=== PATIENT | male | born 1955 | race Caucasian/White ===

== ENCOUNTER 2019-07-18 21:15 | Emergency (ER) | payer MEDICARE, OTHER ==
--- NOTE | 2019-07-18 22:37 | ER Document Report ---
ED Medical Screen (RME) - General Chief Complaint: Dizziness Stated Complaint: NAUSEA/VOMITING/DIZZY Time Seen by Provider: 07/18/19 22:16 Primary Care Provider: MORTEZA RIAN [Primary Care Provider] - Follow up as needed TRAVEL OUTSIDE OF THE [place] IN LAST 30 DAYS: No - HPI Notes: 07/18/19 22:28 Mr. Lopez is a 64-year-old male with past medical history of tobacco abuse who comes in today with chief complaint sinus symptoms for the past 1 to 2 days. He developed vertigo/dizziness that began rather suddently at 830pm tonight. He states that the symptoms today became became progressively worse with additional frontal headache, nausea, vomiting, right lower quadrant abdominal pain, and generalized weakness. He states that he is normally able to ambulate without concern, but has been unable to do so due to his symptoms. Of note patient has had several days worth of congestion, headache, and sinus pressure, and was prescribed amoxicillin on 07/14 for sinus infection. Currently he denies any fevers, chest pain, or shortness of breath. Charge nurse/Dr. Lua notified. Pt to go to room #[address] I have treated and performed a rapid initial assessment of this patient. A comprehensive ED assessment and evaluation of the patient, analysis of test results and completion of medical decision making process will be conducted by additional ED providers. PHYSICAL EXAMINATION: GENERAL: Well-appearing, well-nourished and in no acute distress. A&Ox4. Answers questions appropriately. Head: Atraumatic Eyes: No raccoon eyes, PERRLA, EOMI bilaterally. + horizontal nystagmus to left gaze Neuro: NIH 0 (score of 1 with ataxic gait, no individual limb ataxia currently), GCS 15, cranial nerves grossly intact. - Related Data Allergies/Adverse Reactions: No Known Allergies Allergy (Unverified 07/18/19 22:17) Past Medical History - Social History Chew tobacco use (# tins/day): No Frequency of alcohol use: None Drug Abuse: None Physical Exam - Vital signs Vitals: Temp Pulse Resp BP Pulse Ox 97.7 F 66 20 124/71 96 07/18/19 21:28 07/18/19 21:28 07/18/19 21:28 07/18/19 21:28 07/18/19 21:28 Course - Vital Signs Vital signs: Temp Pulse Resp BP Pulse Ox 97.7 F 66 20 124/71 96 07/18/19 21:28 07/18/19 21:28 07/18/19 21:28 07/18/19 21:28 07/18/19 21:28 Doctor's Discharge - Discharge Referrals: LOCALMD,NO [Primary Care Provider] - Follow up as needed
--- NOTE | 2019-07-18 23:07 | RADIOLOGY REPORT (SQ) ---
EXAM DESCRIPTION: [facility]: CT HEAD WITHOUT IV CONTRAST CLINICAL HISTORY: 64 years Male; dizziness, stroke alert; TECHNIQUE: Noncontrast CT head. All CT scans at this facility use dose modulation, iterative reconstruction, and/or weight based dosing when appropriate to reduce radiation dose to as low as reasonably achievable. COMPARISON: None. FINDINGS: Gibbs matter, white matter, ventricles, and cisterns are within normal limits. No acute hemorrhage or mass effect. Visualized portions of paranasal sinuses and mastoids are clear. Visualized portions of the calvarium are within normal limits. IMPRESSION: 1. No acute intracranial findings.
--- NOTE | 2019-07-18 23:13 | RADIOLOGY REPORT (SQ) ---
EXAM DESCRIPTION: XR CHEST 1 VIEW COMPLETED DATE/TME: 07/18/2019 22:26 CLINICAL HISTORY: 64 years, Male, dizziness COMPARISON: None. NUMBER OF VIEWS: Single TECHNIQUE: LIMITATIONS: None. FINDINGS: Cardiomediastinal silhouette is top normal. Mild LVH configuration. Mild interstitial prominence, presumed chronic. No consolidation effusion or pneumothorax. Mild laxity in the shoulders IMPRESSION: Active intrathoracic disease. copyright 2010 [employer]- All Rights Reserved
[2019-07-18] MEDS ORDERED: NORMAL SALINE 1000 ML 1,000 ML IV ONE (23:14)
--- NOTE | 2019-07-18 23:14 | ER Document Report ---
ED Dizziness/Weakness - General Chief Complaint: Dizziness Stated Complaint: NAUSEA/VOMITING/DIZZY Time Seen by Provider: 07/18/19 22:16 Primary Care Provider: MORTEZA RAIN [NO LOCAL MD] - Follow up as needed Mode of Arrival: Ambulatory Information source: Patient Notes: 64-year-old man presents with a two-week history of dizziness, nausea and imbalance. He was being treated for vertigo apparently given a course of Zithromax followed by treatment with amoxicillin. He is presently not taking any other medications. 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 He went home and developed nausea and vomiting episodes with continued imbalance. His convinced him to come to the emergency department for further evaluation and treatment. TRAVEL OUTSIDE OF THE [place] IN LAST 30 DAYS: No - Related Data Allergies/Adverse Reactions: No Known Allergies Allergy (Unverified 07/18/19 22:17) Past Medical History - Social History Smoking Status: Current Every Day Smoker Chew tobacco use (# tins/day): No Frequency of alcohol use: None Drug Abuse: None Family History: Reviewed & Not Pertinent Patient has suicidal ideation: No Patient has homicidal ideation: No Review of Systems - Review of Systems Notes: Constitutional: Negative for fever. HENT: + Ear fullness Eyes: Negative for visual changes. Cardiovascular: Negative for chest pain. Respiratory: Negative for shortness of breath. Gastrointestinal: Negative for abdominal pain, vomiting or diarrhea. Genitourinary: Negative for dysuria. Musculoskeletal: Negative for back pain. Skin: Negative for rash. Neurological: + Imbalance and dizziness, negative for headaches, weakness or numbness. 10 point ROS negative except as marked above and in HPI. Physical Exam - Vital signs Vitals: Temp Pulse Resp BP Pulse Ox 97.7 F 66 20 124/71 96 07/18/19 21:28 07/18/19 21:28 07/18/19 21:28 07/18/19 21:28 07/18/19 21:28 - Notes Notes: PHYSICAL EXAMINATION: Physical Exam: General: Well-nourished well-developed in no acute distress HEENT: NC/AT, pupils equal round and reactive to light, bilateral tympanic membranes with air-fluid levels, dullness of the TM, MM moist,nares clear, oropharynx clear, airway patent, + lateral nystagmus Neck: supple, no adenopathy, no masses. Good range of motion Lungs: clear, no wheezing, no rales no rhonchi CVS: Regular rate and rhythm no murmur gallop or rub Abdomen: Soft, active, nontender, no masses, no hepatosplenomegaly Ext: No edema, clubbing or cyanosis. Neuro: Alert and responsive, moving all 4 extremities on command, cranial nerves intact, no focal findings Skin: Intact no open lesions, no rash PSYCH: Normal mood, normal affect. Course - Re-evaluation Re-evalutation: 07/19/19 01:10 Patient was evaluated in front end triage, CT of the head, laboratory data and chest x-ray are nondiagnostic.. He was given IV fluids, Decadron 10 mg IV and Zofran with a oral dose of meclizine. The patient states that he is feeling much better his symptoms have resolved. He will be discharged home with meclizine and prednisone. I have asked him to continue the amoxicillin that was prescribed by his primary care doctor. - Vital Signs Vital signs: Temp Pulse Resp BP Pulse Ox 97.7 F 70 12 115/74 93 07/18/19 21:28 07/18/19 22:22 07/19/19 01:01 07/19/19 01:01 07/19/19 01:01 - Laboratory Result Diagrams: 07/18/19 23:00 07/18/19 23:00 Laboratory results interpreted by me: 07/18/19 07/18/19 07/18/19 22:59 23:00 23:00 WBC 16.5 H Lymph % (Auto) 9.4 L Absolute Neuts (auto) 14.1 H Seg Neutrophils % 85.6 H Glucose 130 H POC Glucose 123 H Urine Protein Urine Urobilinogen 07/18/19 23:00 WBC Lymph % (Auto) Absolute Neuts (auto) Seg Neutrophils % Glucose POC Glucose Urine Protein 30 H Urine Urobilinogen 2.0 H 07/19/19 01:18 I have reviewed laboratory data and used this information for the treatment decisions regarding the patient. - Diagnostic Test Radiology reviewed: Image reviewed, Reports reviewed - Chest x-ray: Mild cardiomegaly otherwise normal CT head noncontrast: No acute intracranial pathology noted on CT. Discharge - Discharge Clinical Impression: Labyrinthitis of both ears, Vertigo Acute serous otitis media of both ears Qualifiers: Recurrence: non-recurrent Qualified Code(s): H65.03 - Acute serous otitis media, bilateral Nausea and vomiting Qualifiers: Vomiting type: unspecified Vomiting Intractability: non-intractable Qualified Code(s): R11.2 - Nausea with vomiting, unspecified Condition: Good Disposition: HOME, SELF-CARE Instructions: Antinausea Medication ([facility]), Labyrinthitis ([facility]), Meclizine ([facility]) Additional Instructions: You are diagnosed with labyrinthitis and secondary vertigo, likely related to the fluid behind the eardrums and congestion. Please continue the amoxicillin which was prescribed by your primary care physician. Began meclizine as prescribed, prednisone as prescribed, use Zofran for nausea as prescribed, follow-up with your primary care doctor as needed. If your symptoms worsen or you have other concerns you may return to the emergency department for further treatment. HOME CARE INSTRUCTIONS & INFORMATION: Thank you for choosing us for your medical needs. We hope you're satisfied with the care you received. After you leave, you must properly care for your problem and, at the same time, observe its progress. Any condition can change. Some illnesses can change rapidly over hours or days. If your condition worsens, return to the Emergency Department or see your physician promptly. ABOUT YOUR X-RAYS AND EKG'S: If you had an EKG or X-rays taken, they have been read by the Emergency Physician. The X-rays and EKG's will also be read by a Radiologist or [facility] Biology within 24 hours. If discrepancies are noted, you will be notified by telephone. Please be certain the ED has a correct telephone number & address where you can be reached. Also, realize that some fractures or abnormalities do not show up on initial X-rays. If your symptoms continue, see your physician. ABOUT YOUR LABORATORY TEST: If you had laboratory tests, the results have been reviewed by the Emergency Physician. Some test results (for example cultures) may not be available for several days. You will be contacted if any test result shows you need additional treatment. Please be certain the ED has a correct telephone number and address where you can be reached. ABOUT YOUR MEDICATIONS: You will receive instructions on how to take your medicine on the prescription label you receive. Additional information may be provided by the Pharmacy. If you have questions afterwards, call the ED for clarification or further instructions. Some prescribed medications may cause drowsiness. Do not perform tasks such as driving a car or operating machinery without consulting your Pharmacist. If you feel you need a refill of pain medication, your condition will need re-evaluation. Please do not call for a refill of any medication. ABOUT YOUR SIGNATURE: Signature of this document acknowledges to followin. Understanding that you received emergency treatment and that you may be r eleased before al medical problems are known or treated. Please be certain the ED has a correct phone number & address where you can be reached. 2. Acknowledgement that you will arrange for follow-up care as recommended. 3. Authorization for the Emergency Physician to provide information to your follow-up Physician in order to maximize your care. AT ANY TIME, IF YOUR SYMPTOMS CHANGE SIGNIFICANTLY OR WORSEN OR YOU DEVELOP NEW SYMPTOMS, RETURN TO THE EMERGENCY DEPARTMENT IMMEDIATELY FOR RE-EVALUATION. OUR GOAL IS TO PROVIDE EXCELLENT MEDICAL CARE! WE HOPE THAT WE HAVE MET YOUR EXPECTATIONS DURING YOUR EMERGENCY DEPARTMENT VISIT AND THAT YOU FEEL YOU HAVE RECEIVED EXCELLENT CARE! Prescriptions: Meclizine HCl [Antivert 25 mg Tablet] 25 mg PO TID PRN #30 tablet PRN Reason: Prednisone [Deltasone 20 mg Tablet] 1 tab PO BID 5 Days #10 tablet Ondansetron [Zofran Odt 4 mg Tablet] 1 - 2 tab PO Q4H PRN #15 tab.rapdis PRN Reason: For Nausea/Vomiting Referrals: LOCALMD,NO [NO LOCAL MD] - Follow up as needed
[2019-07-18] MEDS ORDERED: DEXAMETHASONE SOD PHOS INJ 10 MG/1 ML VIAL IV ONE (23:15)
[2019-07-18] MEDS ORDERED: ONDANSETRON HCL INJ/PF 4 MG/2 ML SDV IV ONE (23:15)
[2019-07-18] MEDS ORDERED: MECLIZINE HCL 25 MG TABLET PO ONE (23:16)
[2019-07-18 23:26] LABS: INTERNATIONAL RATION (INR) 1.05; PROTHROMBIN TIME 13.7 SEC (11.4-15.4)
[2019-07-18 23:27] LABS: ABSOLUTE BASOPHILS # (AUTO) 0.1 10^3/uL (0.0-0.2); ABSOLUTE EOSINOPHILS # (AUTO) 0.1 10^3/uL (0.0-0.6); ABSOLUTE MONOCYTES (AUTO) 0.6 10^3/uL (0.1-1.4); LYMPHOCYTES % (AUTO) 9.4 % (13-45); MEAN CORPUSCULAR HGB CONC 33.7 g/dL (32.0-36.0); MEAN CORPUSCULAR VOLUME 94 fl (80-97); TOTAL CELLS COUNTED % (AUTO) 100 %; WHITE BLOOD COUNT 16.5 10^3/uL (4.0-10.5)
[2019-07-18 23:34] LABS: ALBUMIN 4.1 g/dL (3.5-5.0); ALKALINE PHOSPHATASE 80 U/L (38-126); ANION GAP 10 (5-19); ASPARTATE AMINO TRANSFERASE 42 U/L (17-59); BILIRUBIN,DIRECT 0.3 mg/dL (0.0-0.4); BILIRUBIN,TOTAL 0.9 mg/dL (0.2-1.3); BLOOD UREA NITROGEN 18 mg/dL (7-20); CALCIUM 8.9 mg/dL (8.4-10.2); CARBON DIOXIDE 23 mmol/L (22-30); CHLORIDE 107 mmol/L (98-107); GLUCOSE 130 mg/dL (75-110); POTASSIUM 4.3 mmol/L (3.6-5.0); TOTAL PROTEIN 8.1 g/dL (6.3-8.2)
[2019-07-18 23:43] LABS: APPEARANCE,URINE TURBID; BILIRUBIN,URINE NEGATIVE (NEGATIVE); COLOR,URINE YELLOW; GLUCOSE, URINE NEGATIVE (NEGATIVE); KETONES,URINE NEGATIVE (NEGATIVE); PROTEIN,URINE 30 mg/dL (NEGATIVE); URINE SPECIFIC GRAVITY 1.029
[2019-07-18 23:44] LABS: ABSOLUTE LYMPHOCYTES (AUTO) 1.5 10^3/uL (0.5-4.7); ABSOLUTE NEUT (AUTO) 14.1 10^3/uL (1.7-8.2); BASOPHILS % (AUTO) 0.8 % (0-2); EOSINOPHILS % (AUTO) 0.6 % (0-6); HEMOGLOBIN 16.1 g/dL (13.5-17.0); MEAN CORPUSCULAR HEMOGLOBIN 31.7 pg (27.0-33.4); MONOCYTES % (AUTO) 3.6 % (3-13); PLATELET COUNT 167 10^3/uL (150-450); RED BLOOD COUNT 5.09 10^6/uL (4.35-5.55); RED CELL DISTRIBUTION WIDTH 13.7 % (11.5-14.0); SEGMENTED NEUTROPHILS % (AUTO) 85.6 % (42-78)
[2019-07-18 23:51] LABS: AMORPHOUS SEDIMENT,UR 2+; BACTERIA,URINE 2+ /HPF
[2019-07-19 01:18] VITALS: BP 115/74
--- NOTE | 2019-07-19 09:58 | EKG REPORT ---
SEVERITY:- ABNORMAL ECG - SINUS RHYTHM FIRST DEGREE AV BLOCK BORDERLINE T WAVE ABNORMALITIES : Confirmed by: James Cheek 19-Jul-2019 09:58:26
== END 2019-07-19 01:43 | disposition home or self-care (01) ==
LOC: ER 21:15
DX: H83.03 Labyrinthitis, bilateral (principal); R42 Dizziness and giddiness; R11.2 Nausea with vomiting, unspecified; F17.200 Nicotine dependence, unspecified, uncomplicated
CPT/HCPCS: 93005; 99284; 96361; 96374; 96375; 36415; 82962; 83690; 85025; 85610; 80053; 81001; 84484; 71045; 70450; 93010; A9270; J2405; J7030; J1100

== ENCOUNTER 2019-08-03 12:32 | Emergency (ER) | payer MEDICARE, OTHER ==
[2019-08-03] MEDS ORDERED: MECLIZINE HCL 25 MG TABLET PO ONE ×2 (12:48→13:07)
[2019-08-03] MEDS ORDERED: ONDANSETRON HCL INJ/PF 4 MG/2 ML SDV IV ONE (12:48)
--- NOTE | 2019-08-03 12:50 | ER Document Report ---
ED Medical Screen (RME) - General Chief Complaint: Dizziness Stated Complaint: DIZZINESS Time Seen by Provider: 08/03/19 12:41 Information source: Patient Notes: Patient presents complaining of sudden onset of dizziness that he describes as being similar to vertigo that he has had in the past. Patient states he did have some nausea without any emesis. Patient states he has been recently treated for a sinus infection and does complain of pain and fullness in the left ear. I have greeted and performed a rapid initial assessment of this patient. A comprehensive ED assessment and evaluation of the patient, analysis of test results and completion of the medical decision making process will be conducted by additional ED providers. TRAVEL OUTSIDE OF THE [place] IN LAST 30 DAYS: No - Related Data Allergies/Adverse Reactions: No Known Allergies Allergy (Unverified 07/18/19 22:17) Home Medications: Flonase Past Medical History - Social History Frequency of alcohol use: None Drug Abuse: None Physical Exam - Vital signs Vitals: Temp Pulse Resp BP Pulse Ox 98.1 F 60 18 138/77 H 95 08/03/19 12:37 08/03/19 12:37 08/03/19 12:37 08/03/19 12:37 08/03/19 12:37 - General Notes: Left serous effusion - Cardiovascular Rhythm: Regular Heart sounds: S1 appreciated, S2 appreciated Course - Vital Signs Vital signs: Temp Pulse Resp BP Pulse Ox 98.1 F 60 18 138/77 H 95 08/03/19 12:37 08/03/19 12:37 08/03/19 12:37 08/03/19 12:37 08/03/19 12:37
[2019-08-03 13:36] LABS: ABSOLUTE BASOPHILS # (AUTO) 0.1 10^3/uL (0.0-0.2); ABSOLUTE EOSINOPHILS # (AUTO) 0.1 10^3/uL (0.0-0.6); ABSOLUTE LYMPHOCYTES (AUTO) 1.3 10^3/uL (0.5-4.7); ABSOLUTE MONOCYTES (AUTO) 0.5 10^3/uL (0.1-1.4); ABSOLUTE NEUT (AUTO) 8.3 10^3/uL (1.7-8.2); BASOPHILS % (AUTO) 0.7 % (0-2); EOSINOPHILS % (AUTO) 0.5 % (0-6); HEMATOCRIT 47.8 % (37.9-51.0); HEMOGLOBIN 16.4 g/dL (13.5-17.0); MEAN CORPUSCULAR HEMOGLOBIN 31.8 pg (27.0-33.4); MEAN CORPUSCULAR HGB CONC 34.3 g/dL (32.0-36.0); MEAN CORPUSCULAR VOLUME 93 fl (80-97); MONOCYTES % (AUTO) 4.6 % (3-13); PLATELET COUNT 153 10^3/uL (150-450); RED BLOOD COUNT 5.16 10^6/uL (4.35-5.55); RED CELL DISTRIBUTION WIDTH 13.9 % (11.5-14.0); SEGMENTED NEUTROPHILS % (AUTO) 81.2 % (42-78); TOTAL CELLS COUNTED % (AUTO) 100 %; WHITE BLOOD COUNT 10.2 10^3/uL (4.0-10.5)
[2019-08-03 13:50] LABS: ALKALINE PHOSPHATASE 69 U/L (38-126); ANION GAP 8 (5-19); ASPARTATE AMINO TRANSFERASE 42 U/L (17-59); BILIRUBIN,DIRECT 0.1 mg/dL (0.0-0.4); BILIRUBIN,TOTAL 1.1 mg/dL (0.2-1.3); BLOOD UREA NITROGEN 17 mg/dL (7-20); CALCIUM 8.9 mg/dL (8.4-10.2); CARBON DIOXIDE 23 mmol/L (22-30); CHLORIDE 107 mmol/L (98-107); GLUCOSE 118 mg/dL (75-110); POTASSIUM 4.3 mmol/L (3.6-5.0); TOTAL PROTEIN 7.5 g/dL (6.3-8.2)
--- NOTE | 2019-08-03 14:37 | ER Document Report ---
Entered by PORSHA ARIAS SCRIBE 08/03/19 0515 Acting as scribe for:MI DIOP MD ED General - General Chief Complaint: Dizziness Stated Complaint: DIZZINESS Time Seen by Provider: 08/03/19 12:41 Primary Care Provider: [facility] [Provider Group] - Follow up in 3-5 days Information source: Patient Notes: This 64 year old male patient presents to the emergency department today with complaints of dizziness since 10 am this morning. Patient states he felt "off c enter" this morning at work and decided to come to the hospital. Patient states he visited the emergency department x2 weeks ago for dizziness and nausea. Patient states he visited urgent care x4 days after his last visit to the ED, and was told there was fluid in his ears. Patient states he feels like there is still fluid in his left ear. TRAVEL OUTSIDE OF THE [place] IN LAST 30 DAYS: No - Related Data Allergies/Adverse Reactions: No Known Allergies Allergy (Unverified 07/18/19 22:17) Home Medications: Flonase Past Medical History - General Information source: Patient - Social History Smoking Status: Current Every Day Smoker Cigarette use (# per day): Yes Frequency of alcohol use: None Drug Abuse: None Family History: Reviewed & Not Pertinent Patient has suicidal ideation: No Patient has homicidal ideation: No Review of Systems - Review of Systems Constitutional: No symptoms reported EENT: See HPI, Ear pain Cardiovascular: See HPI, Dizziness Respiratory: No symptoms reported Gastrointestinal: See HPI Genitourinary: No symptoms reported Male Genitourinary: No symptoms reported Musculoskeletal: No symptoms reported Skin: No symptoms reported Hematologic/Lymphatic: No symptoms reported Neurological/Psychological: No symptoms reported Physical Exam - Vital signs Vitals: Temp Pulse Resp BP Pulse Ox 98.1 F 60 18 138/77 H 95 08/03/19 12:37 08/03/19 12:37 08/03/19 12:37 08/03/19 12:37 08/03/19 12:37 - General General appearance: Appears well, Alert - HEENT Head: Normocephalic, Atraumatic Eyes: Other - Lateral gaze nystagmus. Ears: Normal External canal: Normal Tympanic membrane: Injected - Right, Retracted - Right, Serous effusion - Left Neck: Normal - Respiratory Respiratory status: No respiratory distress Chest status: Nontender Breath sounds: Normal Chest palpation: Normal - Cardiovascular Rhythm: Regular Heart sounds: Normal auscultation Murmur: No - Abdominal Inspection: Normal Distension: No distension Bowel sounds: Normal Tenderness: Nontender - Extremities General upper extremity: Normal inspection. No: Edema General lower extremity: Normal inspection. No: Edema - Neurological Neuro grossly intact: Yes Cognition: Normal Orientation: AAOx4 - Psychological Associated symptoms: Normal affect, Normal mood - Skin Skin Temperature: Warm Skin Moisture: Dry Skin Color: Normal Course - Re-evaluation Re-evalutation: 08/03/19 14:58 The patient got up to go to the restroom, when he came back he stated that his dizzy sensation and off-balance feeling is considerably better than it was previously. He will be referred to [facility] for further evaluation of his recurrent vertigo and his chronic left serous otitis media. - Vital Signs Vital signs: Temp Pulse Resp BP Pulse Ox 98.1 F 78 17 132/78 H 98 08/03/19 12:37 08/03/19 13:32 08/03/19 13:32 08/03/19 13:32 08/03/19 13:32 - Laboratory Result Diagrams: 08/03/19 13:09 08/03/19 13:09 Laboratory results interpreted by me: 08/03/19 08/03/19 13:09 13:09 Absolute Neuts (auto) 8.3 H Seg Neutrophils % 81.2 H Glucose 118 H - EKG Interpretation by [facility] EKG shows normal: Sinus rhythm, [place], Intervals, QRS Complexes, ST-T Waves Rate: Normal - 59 Rhythm: NSR Discharge - Discharge Clinical Impression: Vertigo Serous otitis media Qualifiers: Chronicity: unspecified Laterality: left Qualified Code(s): H65.92 - Unspecified nonsuppurative otitis media, left ear Condition: Stable Disposition: HOME, SELF-CARE Additional Instructions: Serous Otitis Media: You have serous otitis -- a vacuum or a fluid build-up in your middle ear cavity. This is caused by blockage of the eustachian tube, which connects the middle ear cavity to the back of the throat. Serous otitis is usually treated with decongestants. Antibiotics are given if there is a question of either early or chronic ear infection. Maneuvers to open the eustachian tube may help. For example, holding your nose then gently "breathing" air up against the closed nostrils may "pop" the eardrums (meaning the eustachian tube has opened). Unfortunately, this condition sometimes takes days or weeks to resolve. In young children, tubes may be required if serous otitis continues despite treatment. A second exam is usually scheduled to see if the problem has improved. If you develop severe ear pain, drainage from the ear, headache, or fever, call the doctor or return for re-examination. Vertigo: You have experienced an episode of vertigo -- a whirling dizziness which may be accompanied by nausea and vomiting or staggering. Vertigo is often caused by an irritation of the inner ear, in which case it is called labyrinthitis. It can also be a symptom of a degenerating inner ear, nerve damage, or brain injury. Your physician has evaluated you to determine whether any further testing is necessary. Vertigo is often treated with dramamine or meclizine. These medications are helpful, but stronger medication may be needed if you are vomiting. Rest in bed. You should not drive or operate machinery until completely better. It may take one to three weeks for recovery. If there are new symptoms, such as decreased hearing or vision, severe headache, weakness or faintness, or confusion, call the physician. Take the medication as prescribed for the dizziness. Do not drive, operate machinery, or climb ladders or any other activity that puts you at risk of injury if the dizziness were to come on suddenly. Call [facility] to schedule an appointment in the next few days for further evaluation of your recurring vertigo and chronic serous otitis media. RETURN TO THE EMERGENCY ROOM IF ANY NEW OR WORSENING SYMPTOMS. Prescriptions: Meclizine HCl [Antivert 25 mg Tablet] 25 mg PO TID PRN #30 tablet PRN Reason: Forms: Return to Work Referrals: [facility] [Provider Group] - Follow up in 3-5 days I personally performed the services described in the documentation, reviewed and edited the documentation which was dictated to the scribe in my presence, and it accurately records my words and actions.
[2019-08-03 15:04] VITALS: BP 128/80
--- NOTE | 2019-08-03 19:21 | EKG REPORT ---
SEVERITY:- NORMAL ECG - SINUS RHYTHM : Confirmed by: Luiz Guerra MD 03-Aug-2019 19:20:09
== END 2019-08-03 15:16 | disposition home or self-care (01) ==
LOC: ER 12:32
DX: R42 Dizziness and giddiness (principal); H65.22 Chronic serous otitis media, left ear; H55.00 Unspecified nystagmus; F17.210 Nicotine dependence, cigarettes, uncomplicated; Z79.899 Other long term (current) drug therapy
CPT/HCPCS: 93005; 99284; 96374; 36415; 85025; 80053; 93010; A9270; J2405

== ENCOUNTER → 2019-09-25 | Outpatient (CLI) | payer MEDICARE, OTHER | LOC: OD 09:15 | PROVIDERS: ATTEND Otolaryngology | DX: J30.9 Allergic rhinitis, unspecified (principal) | CPT/HCPCS: 36415; 82785; 86003 ==

== ENCOUNTER → 2019-09-27 | Outpatient (CLI) | payer MEDICARE, OTHER ==
--- NOTE | 2019-09-27 11:11 | RADIOLOGY REPORT (SQ) ---
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 TECHNIQUE: Multiplanar imaging includes non-contrasted T1, T2, FLAIR, diffusion with ADC map and pos t gadolinium contrast sequences. Additional thin slice images with and without gadolinium contrast a cquired in the posterior fossa. Images stored on PACS. CONTRAST TYPE AND DOSE: 20 mL Dotarem. RENAL FUNCTION: Not indicated. ACR Type II contrast agent associated with few, if any, unconfounded cases of NSF LIMITATIONS: None. FINDINGS: ANATOMY: No anomalies. Normal vascular flow voids. Pituitary fossa normal. CSF SPACES: Normal in size and contour. CEREBRUM: Sulci and gyri normal in size and contour. Normal white matter signal on FLAIR imaging. N o hemorrhage. No edema, masses or mass effect. No enhancing lesions. POSTERIOR FOSSA: No signal alteration. No hemorrhage. No edema, masses or mass effect. Internal fredy tory canals, cerebello-pontine angles, mastoids normal. No enhancing lesions. Detailed imaging of the 5th, 7th, and 8th nerves and [place] within normal limits. DIFFUSION IMAGING: Negative for acute or sub-acute infarction. ORBITS: No masses. Globes normal. PARANASAL SINUSES: No fluid levels. Mucosa normal. OTHER: No other significant finding. IMPRESSION: NORMAL MRI OF THE BRAIN AND POSTERIOR FOSSA WITHOUT AND WITH INTRAVENOUS GADOLINIUM CONT RAST. TECHNICAL DOCUMENTATION: JOB ID: [id number] 2010 [employer]- All Rights Reserved Reading location - IP/workstation name: [email or web address]
== END ==
LOC: RAD 06:49
PROVIDERS: ATTEND Otolaryngology
DX: H90.5 Unspecified sensorineural hearing loss (principal)
CPT/HCPCS: 82565; 70553; A9576

== ENCOUNTER 2020-01-16 06:15 | Emergency (ER) | payer MEDICARE, OTHER ==
[2020-01-16] MEDS ORDERED: NORMAL SALINE 1000 ML 1,000 ML IV ONE (07:55)
[2020-01-16] MEDS ORDERED: KETOROLAC TROMETHAMINE INJ/PF 30 MG/1 ML SDV IV ONE (07:56)
[2020-01-16] MEDS ORDERED: ONDANSETRON HCL INJ/PF 4 MG/2 ML SDV IV ONE ×2 (07:56→11:32)
--- NOTE | 2020-01-16 08:00 | ER Document Report ---
ED General - General Chief Complaint: Abdominal Pain Stated Complaint: LEFT FLANK PAIN Time Seen by Provider: 01/16/20 07:35 Primary Care Provider: HOPE BLACK DO [ASSOCIATE] - Follow up as needed TRAVEL OUTSIDE OF THE [place] IN LAST 30 DAYS: No - HPI Notes: Chief complaint: Left flank pain and left upper quadrant abdominal pain History of present illness: 64-year-old male with positive family history of kidney stones but no personal history of this entity awakened this morning around 4:30 AM with mild left upper quadrant and left flank pain. This was initially intermittent and has now become steady presently reaching an intensity of 8/10. Associated nausea without vomiting. No dysuria, gross hematuria or urinary frequency. No fever or chills. Patient took some Gas-X initially with no relief of his discomfort. - Related Data Allergies/Adverse Reactions: No Known Allergies Allergy (Unverified 07/18/19 22:17) Home Medications: flonase, meclizine-prn Past Medical History - General Information source: Patient, Relative, [facility] - Social History Smoking Status: Current Every Day Smoker Frequency of alcohol use: Occasional Drug Abuse: None Family History: Reviewed & Not Pertinent - Past Medical History Cardiac Medical History: Reports: None Pulmonary Medical History: Reports: None Endocrine Medical History: Denies: Hx Diabetes Mellitus Type 1, Hx Diabetes Jessica litus Type 2 Renal/ Medical History: Reports: None Malignancy Medical History: Reports None GI Medical History: Reports: None Psychiatric Medical History: Reports: None Surgical Hx: Negative Review of Systems - Review of Systems Notes: Constitutional: Negative for fever. HENT: Negative for sore throat. Eyes: Negative for visual changes. Cardiovascular: Negative for chest pain. Respiratory: Negative for shortness of breath. Gastrointestinal: As per HPI. Genitourinary: As per HPI. Musculoskeletal: Negative for back pain. Skin: Negative for rash. Neurological: Negative for headaches, weakness or numbness. 10 point ROS negative except as marked above and in HPI. Physical Exam - Vital signs Vitals: Temp Pulse Resp BP Pulse Ox 98.5 F 62 16 148/101 H 93 01/16/20 06:20 01/16/20 06:20 01/16/20 06:20 01/16/20 06:20 01/16/20 06:20 - Notes Notes: GENERAL: Well-developed well-nourished male approximately stated age appearing in moderate discomfort. SKIN: Good turgor no rashes. HEAD: Normocephalic atraumatic. EYES: PERRLA. EOMI. Conjunctivae and sclerae clear. EARS: CANALS AND TMS CLEAR. NOSE: CLEAR. MOUTH: Moist mucosa. Good dentition. No stridor or edema. No drooling. NECK: Supple. No masses or thyromegaly. No adenopathy. Carotids 2+ without br uits. No JVD. BACK: Symmetrical without tenderness. CHEST: Respirations unlabored. Breath sounds clear and symmetrical. HEART: Regular rhythm. No murmur gallop or rub. ABDOMEN: Soft nontender without masses, organomegaly or rebound. Bowel sounds normally active. No bruits. GENITALIA: Deferred. EXTREMITIES: No edema. No calf tenderness. Cap refill less than 1.5 seconds. Dorsalis pedis and posterior tibial pulses 3+ and symmetrical. NEUROLOGICAL: GCS 15. Alert and oriented x3. Normal gait. Fluent speech. Cranial nerves II through XII intact. Sensorimotor and cerebellar normal. Normal tone. PSYCHIATRIC: Appropriate affect. Course - Re-evaluation Re-evalutation: 01/16/20 12:37 Patient presented with what appeared to be typical renal colic on the left. Urinalysis is unremarkable. Creatinine normal. White count was 12.7 with a normal hemoglobin. Patient received IV fluids and IV Toradol with initial relief of pain. Subsequently had recurrence of pain and required administration of IV Dilaudid. CT urogram suggested high-grade UPJ obstruction left with no clear-cut stone visualized. Per recommendation of radiology went back he has been IV contrast. He appears to have some sort of a high density nodular lesion in the area obstruction. I have requested consultation with Dr. 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 I am awaiting return call. Findings have been discussed with patient at this time. 01/16/20 15:33 Dr. Dela Cruz feels patient is stable for outpatient follow-up in the office. We have given patient the office number and advised him to call tomorrow to arrange an appointment. He will be discharged on Percocet and Zofran. - Vital Signs Vital signs: Temp Pulse Resp BP Pulse Ox 98.2 F 53 L 14 139/86 H 91 L 01/16/20 15:14 01/16/20 15:14 01/16/20 10:27 01/16/20 15:14 01/16/20 15:14 - Laboratory Result Diagrams: 01/16/20 08:00 01/16/20 08:00 Laboratory results interpreted by me: 01/16/20 01/16/20 08:00 08:00 WBC 12.7 H Plt Count 140 L Lymph % (Auto) 6.6 L Absolute Neuts (auto) 11.3 H Seg Neutrophils % 89.3 H Chloride 109 H Carbon Dioxide 21 L Glucose 142 H - Diagnostic Test Radiology reviewed: Reports reviewed Discharge - Discharge Clinical Impression: Ureteropelvic junction (UPJ) obstruction, left Condition: Stable Disposition: HOME, SELF-CARE Additional Instructions: Return here as needed for new or worsening symptoms: Pain that is worsening or unimproved Uncontrolled vomiting High fever or shaking chills Overall worsening Call referral urologist office tomorrow to confirm appointment for 8:30 AM on TuesdayJanuary [address] Demarco Dela Cruz Prescriptions: Oxycodone HCl/Acetaminophen [Percocet 5-325 mg Tablet] 1 - 2 tab PO Q4H PRN #15 tablet PRN Reason: Ondansetron [Zofran Odt 4 mg Tablet] 1 - 2 tab PO Q4H PRN #15 tab.rapdis PRN Reason: For Nausea/Vomiting Referrals: HOPE BLACK DO [ASSOCIATE] - Follow up as needed DEMARCO DELA CRUZ MD [NO LOCAL MD] - Follow up as needed
[2020-01-16 08:18] LABS: ABSOLUTE BASOPHILS # (AUTO) 0.1 10^3/uL (0.0-0.2); ABSOLUTE LYMPHOCYTES (AUTO) 0.8 10^3/uL (0.5-4.7); ABSOLUTE MONOCYTES (AUTO) 0.4 10^3/uL (0.1-1.4); ABSOLUTE NEUT (AUTO) 11.3 10^3/uL (1.7-8.2); BASOPHILS % (AUTO) 0.5 % (0-2); EOSINOPHILS % (AUTO) 0.1 % (0-6); HEMATOCRIT 46.2 % (37.9-51.0); HEMOGLOBIN 16.3 g/dL (13.5-17.0); LYMPHOCYTES % (AUTO) 6.6 % (13-45); MEAN CORPUSCULAR HEMOGLOBIN 32.2 pg (27.0-33.4); MEAN CORPUSCULAR HGB CONC 35.2 g/dL (32.0-36.0); MEAN CORPUSCULAR VOLUME 92 fl (80-97); MONOCYTES % (AUTO) 3.5 % (3-13); PLATELET COUNT 140 10^3/uL (150-450); RED BLOOD COUNT 5.05 10^6/uL (4.35-5.55); RED CELL DISTRIBUTION WIDTH 13.7 % (11.5-14.0); SEGMENTED NEUTROPHILS % (AUTO) 89.3 % (42-78); TOTAL CELLS COUNTED % (AUTO) 100 %; WHITE BLOOD COUNT 12.7 10^3/uL (4.0-10.5)
[2020-01-16 08:26] LABS: APPEARANCE,URINE SLIGHTLY-CLOUDY; BILIRUBIN,URINE NEGATIVE (NEGATIVE); COLOR,URINE YELLOW; GLUCOSE, URINE NEGATIVE (NEGATIVE); KETONES,URINE NEGATIVE (NEGATIVE); LEUKOCYTE ESTERASE,URINE NEGATIVE (NEGATIVE); NITRITE,URINE NEGATIVE (NEGATIVE); PROTEIN,URINE NEGATIVE (NEGATIVE); URINE SPECIFIC GRAVITY 1.027; UROBILINOGEN,URINE NEGATIVE mg/dL (<2.0)
[2020-01-16 08:39] LABS: ALBUMIN 3.8 g/dL (3.5-5.0); ALKALINE PHOSPHATASE 67 U/L (38-126); ANION GAP 8 (5-19); ASPARTATE AMINO TRANSFERASE 37 U/L (17-59); BILIRUBIN,DIRECT 0.3 mg/dL (0.0-0.4); BILIRUBIN,TOTAL 0.9 mg/dL (0.2-1.3); BLOOD UREA NITROGEN 20 mg/dL (7-20); CALCIUM 8.8 mg/dL (8.4-10.2); CARBON DIOXIDE 21 mmol/L (22-30); CHLORIDE 109 mmol/L (98-107); GLUCOSE 142 mg/dL (75-110); POTASSIUM 4.5 mmol/L (3.6-5.0); TOTAL PROTEIN 6.8 g/dL (6.3-8.2)
--- NOTE | 2020-01-16 09:20 | RADIOLOGY REPORT (SQ) ---
EXAM DESCRIPTION: CT ABD/PELVIS NO ORAL OR IV IMAGES COMPLETED DATE/TIME: 01/16/2020 8:51 am REASON FOR STUDY: Left upper quadrant abdominal pain COMPARISON: None. TECHNIQUE: CT scan of the abdomen and pelvis performed without intravenous or oral contrast. Images reviewed with lung, soft tissue, and bone windows. Reconstructed coronal and sagittal MPR images revi ewed. All images stored on PACS. All CT scanners at this facility use dose modulation, iterative reconstruction, and/or weight based d osing when appropriate to reduce radiation dose to as low as reasonably achievable (ALARA). [facility]: Dose Right [facility]: CareDose [facility]: Dose Right [facility]: Teradose 4D [facility]: Smart [id number] RADIATION DOSE: CT Rad equipment meets quality standard of care and radiation dose reduction techniq ues were employed. CTDIvol: 16.6 mGy. DLP: 937 mGy-cm. LIMITATIONS: None. FINDINGS: LOWER CHEST: Atherosclerotic calcification of the aortic valve leaflets. NON-CONTRASTED LIVER, SPLEEN, ADRENALS: Evaluation is limited due to the absence of intravenous contr ast. The morphology of the liver is noncirrhotic. The spleen is borderline enlarged and it measures 13.4 cm in AP diameter. The diffuse nodular enlargement of the left adrenal gland could represent a denomatous hyperplasia. There is no discrete right adrenal nodule. PANCREAS: No acute gross abnormality of the pancreas. GALLBLADDER: No abnormality that is apparent on CT. RIGHT KIDNEY AND URETER: Evaluation is limited due to the absence of intravenous contrast. There is no hydronephrosis, nephrolithiasis, hydroureter or ureterolithiasis. LEFT KIDNEY AND URETER: Evaluation is limited due to the absence of intravenous contrast. There is a symmetric enlargement of the kidney, stranding of the perinephric fat and moderate to severe hydronep hrosis with an abrupt transition in the caliber between the dilated renal pelvis and the nondilated u reter at the ureteropelvic junction (image 48 of series 3). There is no discrete nephrolithiasis or ureterolithiasis. AORTA AND RETROPERITONEUM: Variant duplication of the IVC. The abdominal aorta is normal in caliber. There is no retroperitoneal adenopathy, hemorrhage or mass. BOWEL AND PERITONEAL CAVITY: Colonic diverticulosis without diverticulitis. There is no bowel obstru ction, bowel wall thickening or pericolonic/ perienteric inflammation. There is no mesenteric adenop athy, free intraperitoneal fluid or mesenteric/ omental inflammation. APPENDIX: Normal. PELVIS, BLADDER, AND ABDOMINAL WALL:The urinary bladder is contracted. There is no sizable abdominal wall mass or hernia. BONES: Degenerative spondylosis and facet arthropathy of the lumbar spine. OTHER: No other significant finding. IMPRESSION: 1. There is asymmetric enlargement of the left kidney, stranding of the left perinephric fat and moderate to severe left-sided hydronephrosis with an abrupt transition in the caliber betwee n the dilated renal pelvis and the nondilated ureter at the ureteropelvic junction (image 48 of serie s 3). There is no discrete nephrolithiasis or ureterolithiasis. The aforementioned findings could r epresent a stricture at the ureterovesicular junction or an obstructive calculus that is imperceptibl e on CT. 2. Varying duplication of the IVC. 3. Colonic diverticulosis without diverticulitis. COMMENT: Quality ID # 436: Final reports with documentation of one or more dose reduction techniques (e.g., Automated exposure control, adjustment of the mA and/or kV according to patient size, use of iterative reconstruction technique) TECHNICAL DOCUMENTATION: JOB ID: [id number] 2010 [employer]- All Rights Reserved Reading location - IP/workstation name: [email or web address]
[2020-01-16] MEDS ORDERED: MORPHINE SULFATE 10 MG/ML INJ IV PRN (11:30)
[2020-01-16] MEDS ORDERED: MORPHINE SULFATE 10 MG/ML INJ IV ONE (11:32)
--- NOTE | 2020-01-16 11:43 | RADIOLOGY REPORT (SQ) ---
EXAM DESCRIPTION: CT ABD/PELVIS WITH IV ONLY IMAGES COMPLETED DATE/TIME: 01/16/2020 11:12 am REASON FOR STUDY: abn non-contrast CT abd/pelvis COMPARISON: CT of the abdomen pelvis without contrast from 01/16/2020. TECHNIQUE: CT scan of the abdomen and pelvis performed using helical scanning technique with dynamic intravenous contrast injection. No oral contrast. Images reviewed with lung, soft tissue, and bone windows. Reconstructed coronal and sagittal MPR images reviewed. Delayed images for evaluation of the urinary system also acquired. All images stored on PACS. All CT scanners at this facility use dose modulation, iterative reconstruction, and/or weight based d osing when appropriate to reduce radiation dose to as low as reasonably achievable (ALARA). [facility]: Dose Right [facility]: CareDose [facility]: Dose Right [facility]: Teradose 4D [facility]: [employer] CONTRAST TYPE AND DOSE: Contrast/concentration: Isovue 350.00 mmol/ml; Total Contrast Delivered: 100 .0 ml; Total Saline Delivered: 69.9 ml RENAL FUNCTION: Creatinine 1.18 milligrams/deciliter. RADIATION DOSE: CT Rad equipment meets quality standard of care and radiation dose reduction techniq ues were employed. CTDIvol: 15.2 - 19.3 mGy. DLP: 1894 mGy-cm. LIMITATIONS: None. FINDINGS: LOWER CHEST: No acute findings. LIVER: The morphology of the liver is noncirrhotic. The portal veins are patent. There is no hepati c mass. SPLEEN: No the spleen is borderline enlarged. There is no splenic mass. PANCREAS: No acute gross abnormality of the pancreas. GALLBLADDER: No abnormality that is apparent on CT. ADRENAL GLANDS: Unchanged diffuse nodular enlargement of the left adrenal gland. RIGHT KIDNEY AND URETER: Simple cyst in the anterior cortex of the lower pole of the kidney that rtey sures 2.1 x 1.4 cm. There is no solid mass, hydronephrosis, nephrolithiasis, hydroureter or ureterol ithiasis. LEFT KIDNEY AND URETER: There is re- demonstration of asymmetric enlargement of the kidney, moderate to severe hydronephrosis, delayed excretion of the intravenous contrast and stranding of the perineph pat fat ; these findings are secondary to a hyperdensity of the ureter say color junction (image 40 o f series 601) that has an attenuation of 54 Hounsfield units (26 Hounsfield units on the correlative noncontrast CT). There is no definite nephrolithiasis or ureterolithiasis. AORTA AND VESSELS: Variant duplication of the IVC. The abdominal aorta is nonaneurysmal. RETROPERITONEUM: No retroperitoneal adenopathy, hemorrhage or mass. BOWEL AND PERITONEAL CAVITY: No bowel obstruction, bowel wall thickening or pericolonic/ perienteric inflammation. No mesenteric adenopathy, free intraperitoneal fluid or mesenteric/omental inflammatio n. APPENDIX: Normal. PELVIS: No abnormality. ABDOMINAL WALL: No mass or hernia. BONES: No acute findings. OTHER: No other finding. IMPRESSION: Nodular hyperdense lesion in the left ureterovesicular junction that on correlation with the recent noncontrast CT demonstrates mild enhancement and results in moderate to severe ipsilatera l hydronephrosis, enlargement of the kidney, delayed excretion of the intravenous contrast and strand ing of the perinephric fat. Differential considerations include urothelial carcinoma, sloughed papil la and an ureteral papilloma. TECHNICAL DOCUMENTATION: JOB ID: [id number] Quality ID # [id number]: Final reports with documentation of one or more dose reduction techniques (e.g., Au tomated exposure control, adjustment of the mA and/or kV according to patient size, use of iterative reconstruction technique) 2010 [employer]- All Rights Reserved Reading location - IP/workstation name: [email or web address]
[2020-01-16] MEDS ORDERED: HYDROMORPHONE HCL INJ/PF 2 MG/ML AMPULE IV ONE ×2 (12:21→14:29)
[2020-01-16 16:05] VITALS: BP 170/80
== END 2020-01-16 16:05 | disposition home or self-care (01) ==
LOC: ER 06:15
DX: N13.5 Crossing vessel and stricture of ureter without hydronephrosis (principal); R10.9 Unspecified abdominal pain; R10.12 Left upper quadrant pain; R11.0 Nausea; Z79.899 Other long term (current) drug therapy; F17.200 Nicotine dependence, unspecified, uncomplicated
CPT/HCPCS: 96376; 99285; 96361; 96374; 96375; 36415; 83690; 85025; 80053; 81001; 74176; 74177; J1885; J2270; J1170; J2405; J7030

== ENCOUNTER 2020-01-19 06:01 | Emergency (ER) | payer MEDICARE, OTHER ==
[2020-01-19] MEDS ORDERED: HYDROMORPHONE HCL INJ/PF 2 MG/ML AMPULE IV ONE (06:38)
[2020-01-19] MEDS ORDERED: ONDANSETRON HCL INJ/PF 4 MG/2 ML SDV IV ONE (06:39)
[2020-01-19] MEDS ORDERED: NORMAL SALINE 500 ML IV ONE (06:40)
[2020-01-19 07:01] LABS: ABSOLUTE BASOPHILS # (AUTO) 0.1 10^3/uL (0.0-0.2); ABSOLUTE EOSINOPHILS # (AUTO) 0.2 10^3/uL (0.0-0.6); ABSOLUTE LYMPHOCYTES (AUTO) 1.3 10^3/uL (0.5-4.7); ABSOLUTE MONOCYTES (AUTO) 0.9 10^3/uL (0.1-1.4); ABSOLUTE NEUT (AUTO) 9.7 10^3/uL (1.7-8.2); BASOPHILS % (AUTO) 0.5 % (0-2); EOSINOPHILS % (AUTO) 1.3 % (0-6); HEMATOCRIT 46.2 % (37.9-51.0); HEMOGLOBIN 15.9 g/dL (13.5-17.0); LYMPHOCYTES % (AUTO) 10.6 % (13-45); MEAN CORPUSCULAR HEMOGLOBIN 31.7 pg (27.0-33.4); MEAN CORPUSCULAR HGB CONC 34.4 g/dL (32.0-36.0); MEAN CORPUSCULAR VOLUME 92 fl (80-97); MONOCYTES % (AUTO) 7.3 % (3-13); PLATELET COUNT 141 10^3/uL (150-450); RED BLOOD COUNT 5.01 10^6/uL (4.35-5.55); RED CELL DISTRIBUTION WIDTH 13.8 % (11.5-14.0); SEGMENTED NEUTROPHILS % (AUTO) 80.3 % (42-78); TOTAL CELLS COUNTED % (AUTO) 100 %; WHITE BLOOD COUNT 12.1 10^3/uL (4.0-10.5)
[2020-01-19 07:07] LABS: ALBUMIN 3.6 g/dL (3.5-5.0); ALKALINE PHOSPHATASE 65 U/L (38-126); ANION GAP 7 (5-19); ASPARTATE AMINO TRANSFERASE 35 U/L (17-59); BILIRUBIN,DIRECT 0.3 mg/dL (0.0-0.4); BILIRUBIN,TOTAL 1.4 mg/dL (0.2-1.3); BLOOD UREA NITROGEN 17 mg/dL (7-20); CALCIUM 8.5 mg/dL (8.4-10.2); CARBON DIOXIDE 23 mmol/L (22-30); CHLORIDE 106 mmol/L (98-107); GLUCOSE 131 mg/dL (75-110); POTASSIUM 4.3 mmol/L (3.6-5.0); TOTAL PROTEIN 6.6 g/dL (6.3-8.2)
--- NOTE | 2020-01-19 08:10 | RADIOLOGY REPORT (SQ) ---
Abdomen x-ray single view on 01/19/2020 at 7:19 AM CLINICAL INDICATION: Left-sided back pain COMPARISON: CT from 01/16/2020 FINDINGS: Calcification in the pelvis is consistent with a phlebolith. Bowel gas pattern is unremarkable. No increased stool to suggest constipation is noted. No other abnormal calcification or mass effect is noted. No bony normality is noted. IMPRESSION: Nonspecific abdomen.
[2020-01-19 09:18] LABS: AMORPHOUS SEDIMENT,URINE 1+ /HPF; APPEARANCE,URINE TURBID; BILIRUBIN,URINE NEGATIVE (NEGATIVE); COLOR,URINE YELLOW; GLUCOSE, URINE NEGATIVE (NEGATIVE); KETONES,URINE NEGATIVE (NEGATIVE); LEUKOCYTE ESTERASE,URINE NEGATIVE (NEGATIVE); NITRITE,URINE NEGATIVE (NEGATIVE); PROTEIN,URINE NEGATIVE (NEGATIVE); URINE SPECIFIC GRAVITY 1.023; UROBILINOGEN,URINE NEGATIVE mg/dL (<2.0)
--- NOTE | 2020-01-19 10:15 | ER Document Report ---
Entered by RUTHIE FERNANDEZ SCRIBE 01/19/20 0624 Acting as scribe for:PAULA KAMARA MD ED GI/ - General Chief Complaint: Flank Pain Stated Complaint: FLANK PAIN Primary Care Provider: PETE CRUZ PA-C [Primary Care Provider] - Follow up as needed Information source: Patient Notes: This 64-year-old male patient presents to the emergency department today with complaints of continued left-sided flank pain. Patient was seen here on January 16 2020 for left flank pain and he had an abd/pelvis CT as well as an abd/pelvis CT with IV contrast and the impression is as below: "Nodular hyperdense lesion in the left ureterovesicular junction on correlation with recent noncontrast CT demonstrates mild enhancement and results in moderate to severe ipsilateral hydronephrosis, enlargement of kidney, delayed excretion of intravenous contrast and stranding of the perinephric fat. Differential considerations include urothelial carcinoma, sloughed papula and a ureteral papilloma." He reports that he was told to follow-up with urology at [facility], Dr. Acosta. He saw him yesterday and was told that "he could not determine exactly what it was either". They told him that they were going to do an exploratory laparotomy to try and figure out what this obstruction was but they have not yet scheduled it. Patient reports that he took 1 hydrocodone at 10 PM last night and took another one at around midnight last night and was able to get to sleep. He reports that he woke up shortly before arrival today and he was attempting to drive to [place] but "the pain was too severe". He has not taken his pain medication in now nearly 7 hours. He reports that he "feels dehydrated and has had only small amounts of urine come out". TRAVEL OUTSIDE OF THE [place] IN LAST 30 DAYS: No - Related Data Allergies/Adverse Reactions: No Known Allergies Allergy (Unverified 07/18/19 22:17) Home Medications: meclizine. flonase. percocet Past Medical History - General Information source: Patient - Social History Smoking Status: Current Every Day Smoker Cigarette use (# per day): Yes Chew tobacco use (# tins/day): No Frequency of alcohol use: None Drug Abuse: None Occupation: retired Lives with: Family Family History: Reviewed & Not Pertinent Renal/ Medical History: Reports: Other - Hx left-sided hydronephrosis, causenot determined yet Surgical Hx: Negative Review of Systems - Review of Systems Constitutional: No symptoms reported EENT: No symptoms reported Cardiovascular: No symptoms reported Respiratory: No symptoms reported Gastrointestinal: See HPI, Abdominal pain. denies: Nausea, Vomiting Genitourinary: See HPI, Flank pain - left, Retention Male Genitourinary: No symptoms reported Musculoskeletal: No symptoms reported Skin: No symptoms reported Hematologic/Lymphatic: No symptoms reported Neurological/Psychological: No symptoms reported -: Yes All other systems reviewed and negative Physical Exam - Vital signs Vitals: Temp Pulse Resp BP Pulse Ox 98.7 F 63 16 155/84 H 97 01/19/20 06:05 01/19/20 06:05 01/19/20 06:05 01/19/20 06:05 01/19/20 06:05 - Notes Notes: Physical Exam: General: Alert, appears uncomfortable. HEENT: Normocephalic. Atraumatic. PERRL. Extraocular movements intact. Oropharynx clear. Neck: Supple. Non-tender. Respiratory: No respiratory distress. Clear and equal breath sounds bilaterally. Cardiovascular: Regular rate and rhythm. Abdominal: Obese. LUQ tenderness to palpation, positive guarding without rebound. No distension. Normal Bowel Sounds. Back: Left flank tenderness to percussion. Extremities: Moves all four extremities. Upper extremities: Normal inspection. Normal ROM. Lower extremities: Normal inspection. No edema. Normal ROM. Neurological: Normal cognition. AAOx4. Normal speech. Psychological: Normal affect. Normal Mood. Skin: Warm. Dry. Normal color. Course - Re-evaluation Re-evalutation: 01/19/20 10:06 Patient resting better with pain level about 0-1 out of 5. - Vital Signs Vital signs: Temp Pulse Resp BP Pulse Ox 98.7 F 63 16 155/84 H 97 01/19/20 06:05 01/19/20 06:05 01/19/20 06:05 01/19/20 06:05 01/19/20 06:05 01/19/20 10:06 Vital signs are stable - Laboratory Result Diagrams: 01/19/20 06:27 01/19/20 06:27 Laboratory results interpreted by me: 01/19/20 01/19/20 06:27 06:27 WBC 12.1 H Plt Count 141 L Lymph % (Auto) 10.6 L Absolute Neuts (auto) 9.7 H Seg Neutrophils % 80.3 H Sodium 135.7 L Glucose 131 H Total Bilirubin 1.4 H - Diagnostic Test Radiology reviewed: Image reviewed, Reports reviewed Radiology results interpreted by me: 01/19/20 10:10 Plain film kidney ureter bladder abdominal x-ray shows no acute process there is a phlebolith, questionable phlebolith versus ureteral stone. 01/19/20 10:13 Discharge - Discharge Clinical Impression: Flank pain, Ureteral colic, Hydronephrosis Condition: Stable Disposition: HOME, SELF-CARE Instructions: Abdominal Pain ([facility]) Additional Instructions: Continue your same medications that you are on and take pain medication as needed for pain. Increase fluids. Follow-up with the urologist and Nia Rice on Tuesday. Return to the emergency department if there is any further problems. Forms: Return to Work Referrals: PETE CRUZ PA-C [Primary Care Provider] - Follow up as needed I personally performed the services described in the documentation, reviewed and edited the documentation which was dictated to the scribe in my presence, and it accurately records my words and actions.
[2020-01-19 10:41] VITALS: BP 146/82
== END 2020-01-19 10:35 | disposition home or self-care (01) ==
LOC: ER 06:01
DX: N23 Unspecified renal colic (principal); N13.30 Unspecified hydronephrosis; F17.210 Nicotine dependence, cigarettes, uncomplicated
CPT/HCPCS: 99284; 96361; 96374; 96375; 36415; 83605; 85025; 80053; 81001; 74018; J1170; J2405; J7040